=== PATIENT | female | born 1940 | race Caucasian/White ===

== ENCOUNTER 2018-02-24 10:12 | Emergency (ER) | payer OTHER ==
[~2018-02-24] VITALS: Ht 162.6 cm; Wt 100.2 kg
[2018-02-24 10:22] VITALS: BP 134/55
[2018-02-24] MEDS ORDERED: SYNTHROID100 MC1 PO (10:52)
[2018-02-24] MEDS ORDERED: LOSARTAN-HCTZ1 EAC1 PO (10:52)
[2018-02-24] MEDS ORDERED: ASPIR 8181 MG PO (10:52)
[2018-02-24] MEDS ORDERED: CENTRUM SILVER1 EAC4 PO (10:53)
[2018-02-24] MEDS ORDERED: ZOCOR40 MG PO (10:53)
[2018-02-24] MEDS ORDERED: SUPER B COMPLE1 EAC2 PO (10:54)
[2018-02-24] MEDS ORDERED: ESTER-C 1,0001 EACH PO (10:54)
[2018-02-24] MEDS ORDERED: BIOTIN2500 MCG PO (10:55)
[2018-02-24] MEDS ORDERED: METANX CAPSULE1 EACH PO (10:56)
[2018-02-24] MEDS ORDERED: VITAMIN D31000 UNIT PO (10:56)
[2018-02-24] MEDS ORDERED: NEURONTIN 400M400 M2 PO (10:57)
[2018-02-24] MEDS ORDERED: CALCIUM 600 +1 EA11 PO (10:58)
[2018-02-24] MEDS ORDERED: TOPROL XL100 MG PO (10:58)
[2018-02-24] MEDS ORDERED: COUMADIN 5 MG TA5 M1 PO (10:59)
[2018-02-24] MEDS ORDERED: CELADRIN PO (10:59)
[2018-02-24] MEDS ORDERED: OMEPRAZOLE 20 M20 M1 PO (11:00)
[2018-02-24] MEDS ORDERED: GLUCOSAMINE HC500 MG PO (11:00)
[2018-02-24] MEDS ORDERED: FISH OIL 1,001000 M2 PO (11:01)
[2018-02-24] MEDS ORDERED: FIBER500 MG PO (11:01)
[2018-02-24] MEDS ORDERED: BREO ELLIPTA 11 EACH INH (11:03)
== END 2018-02-24 10:37 | disposition home or self-care (01) ==
LOC: M.ERS 10:12
DX: S89.82XA Other specified injuries of left lower leg, initial encounter (principal); Z88.8 Allergy status to other drugs, medicaments and biological substances; X58.XXXA Exposure to other specified factors, initial encounter; Y93.89 Activity, other specified; Y92.89 Other specified places as the place of occurrence of the external cause; Y99.8 Other external cause status